=== PATIENT | female | born 1955 | race Caucasian/White ===

== ENCOUNTER 2017-01-18 06:14 | Inpatient (IN) | payer BC ==
--- NOTE | 2017-01-10 13:00 | HP ---
MEDICATION ADDENDUM NOW INCLUDED ON THIS REPORT HISTORY AND PHYSICAL: DATE OF ADMISSION: 01/18/17 She is coming into [facility] on 01/18/17 for a right total knee replacement. CHIEF COMPLAINT: Right knee pain and deformity. HISTORY OF PRESENT ILLNESS: She has had several years of right knee pain and problems. She had a left total knee replacement last year. The right knee bothers her pain and stiffness. Her walking distance is limited to 1 to 2 blocks. She does stairs using a banister and up is easy for her and down is more painful. She is okay sitting and sleeping. The plan is for a right total knee replacement because the nonoperative care has been no longer responsive for her pain, problems, and disability. PAST MEDICAL HISTORY: No heart attack. No chest pain. No bleeding disorders. PAST SURGICAL HISTORY: She has had a tubal ligation, a D and C x2, a left total knee replacement. No marked surgical or anesthetic complications. No cancers. She has a medical clearance from Dr. Fisher. ALLERGIES: She is allergic to LISINOPRIL, BIAXIN, and AUGMENTIN. SOCIAL HISTORY: No smoking. No drinking. REVIEW OF SYMPTOMS: No stomach problems. No hepatitis. No kidney problems. No bladder problems. PHYSICAL EXAMINATION GENERAL: She is well nourished, well developed, and overweight, not acutely distressed. Some limp on the right. The left knee has a well-healed surgical scar and the right knee has varus in the lateral thrust with ambulation. VITAL SIGNS: Temperature 96.6, blood pressure 136/89, and pulse is 70. Height 5 feet 6 inches and weight 237. HEENT: The head is NC/AT. LUNGS: Clear bilaterally. HEART: Regular S1, S2 normal. No murmurs or gallops. ABDOMEN: Round, soft, and nontender. There is no organomegaly. EXTREMITIES: The foot pulses intact on the left and left knee ligaments are stable and the walking limp. NEUROLOGIC: The cranial nerves are grossly intact. DIAGNOSTIC STUDIES/LAB DATA: X-rays: Severe arthritis of the right knee, bone -on- bone sclerosis and varus malalignment. IMPRESSION: Severe arthritis of the right knee. PLAN: Right total knee replacement. Goals, risks, and complications are reviewed with the patient in my office and acknowledgement of complications of knee replacements were also reviewed. ADDENDUM: Please include in her past medical history, her daily medications: 1. Avapro 75 mg each day. 2. Tolterodine tartrate 2 mg 1 tablet by mouth each day. 3. Hydrochlorothiazide 12.5 mg 1 each day. 4. Plummer-3 1000 mg 3 times a day. 5. Osteo Bi-Flex. 6. Multivitamins. This patient is cared for by Dr. Shilpa Fisher. [id number]/[facility] #: [id number]/[facility] #: [id number] [facility]ASS[facility] HOSPITALKarla
--- NOTE | 2017-01-10 13:25 | HP ---
ADDENDUM: Please include in her past medical history, her daily medications: 1. Avapro 75 mg each day. 2. Tolterodine tartrate 2 mg 1 tablet by mouth each day. 3. Hydrochlorothiazide 12.5 mg 1 each day. 4. Corinne-3 1000 mg 3 times a day. 5. Osteo Bi-Flex. 6. Multivitamins. This patient is cared for by Dr. Shilpa Fisher. [id number]/[facility] #: [id number] LEE
[~2017-01-18 06:14] MED LIST: Buffered Lidocaine 1% SYRIN* 5 ML/SYR SYRINGE ONE; Clindamycin 900 MG IVPREMIX(* 900 MG/50 ML SDV IV ONE; Dexamethasone IV* 4 MG/ML 1 ML (4 MG) IV SLOW PU ONE; Dexamethasone IV* 4 MG/ML 1 ML (4 MG) ONE; Famotidine IV* 10 MG/ML 2 ML (20 mg) IV ONE; Famotidine IV* 10 MG/ML 2 ML (20 mg) ONE
[2017-01-18] MEDS ORDERED: Bupivacaine 0.5% W/EPI SDV* 30 ML VIAL ONE (07:07)
[2017-01-18] MEDS ORDERED: Morphine PF AMP (0.5MG/ML)* 5 MG/10 ML AMP ONE (07:13)
[2017-01-18] MEDS ORDERED: Midazolam* 1 MG/ML 5 ML VIAL (5 MG) ONE (07:13)
[2017-01-18] MEDS ORDERED: Propofol* 10 MG/ML 20 ML BTL IV PUSH ONE (07:13)
[2017-01-18] MEDS ORDERED: KETAMINE HCL* 50 MG/ML 10 ML VIAL ONE (07:13)
[2017-01-18] MEDS ORDERED: Ondansetron INJ* 2 MG/ML VIAL ONE (07:13)
[2017-01-18] MEDS ORDERED: ceFAZolin 2 GM PREMIX(*) 2 GM/50 ML BAG IVPB ONE (07:29)
[2017-01-18] MEDS ORDERED: Bupivacaine 0.5% SDV PF* 30 ML VIAL ONE (08:19)
[2017-01-18] MEDS ORDERED: Midazolam* 1 MG/ML 2 ML VIAL (2 MG) ONE (08:54)
[2017-01-18] MEDS ORDERED: DiMENhydriNATE IV* 50 MG/ML VIAL IV PUSH PRN (09:22)
[2017-01-18] MEDS ORDERED: Nalbuphine* 20 MG/ML 1 ML VIAL IV PRN ×4 (09:22)
[2017-01-18] MEDS ORDERED: oxyCODONE/Acetamin 5/325 MG* TAB PO PRN ×2 (09:22)
[2017-01-18] MEDS ORDERED: Ondansetron INJ* 2 MG/ML VIAL IV PRN (09:22)
[2017-01-18] MEDS ORDERED: Naloxone* 0.4 MG/ML 1 ML VIAL IV PRN (09:22)
[2017-01-18] MEDS ORDERED: Scopolamine 1.5 mg* PATCH TRANSDERM SCH (10:00)
[2017-01-18] MEDS ORDERED: Nalbuphine* 20 MG/ML 1 ML VIAL ONE (10:49)
[2017-01-18] MEDS ORDERED: diPHENhydraMINE IV* 50 MG/ML 1 ml VIAL (BENADRYL) IV PRN (10:54)
[2017-01-18] MEDS ORDERED: Morphine INJ* 2 MG/ML 1 ML SYRINGE IV PRN (10:54)
[2017-01-18] MEDS ORDERED: Acetaminophen TAB* 325 MG PO PRN (10:54)
[2017-01-18] MEDS ORDERED: oxyCODONE TAB* 5 MG TAB PO PRN (10:54)
[2017-01-18] MEDS: Ropivacaine* 300 MG in NS 0.9% 250 ML* 240 ML EPIDURAL SCH (11:29)
--- NOTE | 2017-01-18 12:10 | RAD ---
INDICATION: Right knee arthroplasty COMPARISON: January 09, 2017 TECHNIQUE: A portable 2 view examination was performed. FINDINGS: There is right knee arthroplasty. Both femoral and tibial components appear well seated. There is a cooling jacket in place. There are anterior skin hugh. IMPRESSION: POSTOPERATIVE RIGHT TOTAL KNEE
[2017-01-18] MEDS ORDERED: Scopolamine 1.5 mg* PATCH ONE (13:48)
[2017-01-18] MEDS: ceFAZolin VIAL(*) 1 GM in NS 0.9% 50 ML* 50 ML IVPB SCH ×2 (16:06→21:29)
[2017-01-18] MEDS: Docusate CAP* 100 MG PO SCH (21:13)
[2017-01-19] MEDS ORDERED: oxyCODONE/Acetamin 5/325 MG* TAB PO PRN (00:01)
[2017-01-19] MEDS ORDERED: Ondansetron INJ* 2 MG/ML VIAL IV PRN (00:01)
--- NOTE | 2017-01-19 01:25 | OP ---
OPERATIVE REPORT: DATE OF OPERATION: 01/18/17 DATE OF : 59 SURGICAL CARE: Right knee. SURGEON: Tamir Arreguin MD. ASSISTANTS: Kellen Caicedo, medical or surgical instrument maker and MAHENDRA Rajan, was the support assistant. ANESTHESIOLOGIST: Dr. Cornell Villalobos. ANESTHESIA: Spinal with Duramorph and epidural IV sedation. PRE-OPERATIVE DIAGNOSIS: Severe arthritis of the right knee with varus deformity. POST- OPERATIVE DIAGNOSIS: Severe arthritis of the right knee with varus deformity. OPERATIVE PROCEDURE: Right total knee replacement. COMPLICATIONS: There were no complications. DRAINS: There were 2 blood collection drains, right knee, at the end of the case. ESTIMATED BLOOD LOSS: 250 mL. REPLACEMENT: Crystalloid fluids. OPERATIVE INDICATION: Severe arthritis of the right knee with varus malalignment. The Talib Person a Knee was utilized, the size 6 femur, a 32 patella, an E-tibia and a 10 articular surface. DESCRIPTION OF PROCEDURE: The patient was brought to the operating room and placed on the operating table in a supine position, then into a seated position for administration of spinal Duramorph and the epidural. She returned to the supine position. The Gastelum catheter was inserted. The right pro ximal thigh was wrapped with the tourniquet. The right knee was noted to have some flexion contract ure and the right dorsalis pedis pulse was 2+. The right leg was given a preliminary chlorhexidine prep in the region of the right knee and then a formal ChloraPrep from the tourniquet to the tips of the toes. After prepping, draping, and sealing off, we did our universal protocol time-out confirm cuco Brown and a plan for right total knee replacement. We all agreed and we proceeded. The ski n incision went from 2 fingerbreadths proximal to the superior pole of the patella to the medial asp ect of the tibial tubercle. The knee was entered medial parapatellar. There was a large amount of c lear straw-colored synovial fluid that was suctioned out. Careful hemostasis checked and achieved t hroughout the case utilizing electrocautery. On the tibia, we went down to the bone just medial to the tibial tubercle up to the joint line, then medial parapatellar and then divided the quad tendon at the junction of the rectus femoris and the vastus medialis, staying as close to vastus medialis a s possible, going 4 cm proximal to the superior pole of the patella. The patella was made so that i t could be everted. On the tibia, the anterior medial soft tissues were elevated subperiosteally go ing around to the deep MCL and then to the posteromedial corner of the knee. There was complete eburnation of bone on the medial femoral condyle, medial tibial plateau, some sco oping out of the medial tibial plateau and centimeter osteophytes on the medial tibial plateau, oste ophytes on patellofemoral joint, osteophyte intercondylar and small osteophytes laterally. The francisca tyler of the anterior horn of medial meniscus were carefully excised. The synovectomy was completed around the patella removing the infrapatellar fat pad and lateral meniscus was carefully excised. Careful hemostasis checked and achieved in the lateral joint line and the regional lateral geniculat e. The tibia was made so that it could be subluxated far from under the femur and the ACL and PCL w ere uplifted from their femoral origins. The PCL was carefully excised and great care was taken whil e working posteriorly with careful hemostasis. The distal anterior femur was exposed subperiosteall y for referencing and measuring. The proximal tibial cut was made first. Our goal here was to have a tibial surface that would be perpendicular along the axis of the tibia and have a slight posterio r slope, removing a centimeter to 12 mm laterally and a couple of millimeters medially. The femoral intramedullary drill was then utilized and the femoral canal was entered and suctioned to discourag e embolization. The distal femoral cutting guide was applied on 2 with 6 degrees of valgus for the right. This cut was completed and the extension gap was nice at a centimeter. The femur was measur ed for a size 6. The anterior, posterior and chamfering cuts were completed. We then finished katie maegan of the PCL, posterior horn lateral meniscus, osteophyte on the posterior medial femoral condyle and carefully removed the remains of the medial meniscus, carefully preserving the MCL. At this stag e, we had nice ligamentous balance and 90 degrees of flexion with a 10 and an extension with a 10. The femur was completed with the intercondylar cut out. The tibia was completed for a size E. The knee was reticulated and extended after cleaning the femoral canal x6 with saline suctioning and emp tying and inserting a bone plug. The knee was then assembled with the E tibia, 10 articular surface , 6 femur with full knee extension, nice alignment in extension, stable ligaments in extension and s table ligaments in 90 degrees of flexion. The patella was cut flat, a 32 was chosen, 3 drill holes were made and these were undercut for optimal cement interdigitation. The leg was exsanguinated. T he tourniquet elevated to 300. The knee was cleaned in extension with 2.5 L of pulsed saline irriga tion. Careful hemostasis again on the lateral geniculate. The knee was flexed and the retractors p ut into position. All surfaces were cleaned with pulsed saline and flexion and then dried with lap sponges. The cement was mixed. The components were cemented into position, patella followed by tib ia followed by femur, each was impacted. Excess cement was removed, and the knee was articulated an d extended during the final hardening. The tourniquet was then deflated. Hemostasis was checked and achieved throughout utilizing electroc autery. We infiltrated the posterior medial pericapsular tissues with Marcaine 0.5% with epinephrin e 15 mL and another 5 mL medially and in the skin and subcu. During closure, we irrigated a couple of times with saline and the knee was flexed and extended completely during closure, flexing to abou t 120 and extending fully. Quad mechanism closed with interrupted #1 Polysorb in figure-of- eight f ashion. Distally we used 0 Polysorb, then in the deep fascia, deep bursa 0 Polysorb and then 3-0 Po lysorb on the superficial subcu and then hugh on the skin. Two drains were brought out the super olateral and suprapatellar pouch. At the end of the case, the dorsalis pedis pulse was 2+. The kne e was washed and dried and then dressed with Betadine soaked release and gauze. This was on the alma gical hugh and on the drain sites and then sterile Webril, cryotherapy cuff, ABD pads, and a 6-i nch Angelo bandage was loosely applied. The patient was returned to the recovery room in stable and sa tisfactory condition having tolerated the procedure very well. [id number]/[facility] #: [id number]
[2017-01-19] MEDS: ceFAZolin VIAL(*) 1 GM in NS 0.9% 50 ML* 50 ML IVPB SCH (04:19)
[2017-01-19] MEDS: oxyCODONE/Acetamin 5/325 MG* TAB PO PRN ×4 (05:46→19:23)
[2017-01-19 06:05] LABS: Hemoglobin 9.7 g/dl (12.0-16.0)
[2017-01-19 06:07] LABS: Hematocrit 30 % (35-47)
[2017-01-19 06:24] LABS: BUN/Creatinine Ratio 20.3 (8-20); Calcium 8.3 mg/dL (8.6-10.3); EGFR African American 111.6 (>60); EGFR Non-African American 86.8 (>60); Potassium 3.8 mmol/L (3.5-5.0)
[2017-01-19] MEDS: Ropivacaine* 300 MG in NS 0.9% 250 ML* 240 ML EPIDURAL SCH (08:06)
[2017-01-19] MEDS: Hydrochlorothiazide TAB* 25 MG PO SCH (08:09)
[2017-01-19] MEDS: Losartan TAB* 25 MG PO SCH (08:09)
[2017-01-19] MEDS: Aspirin TAB* 325 MG PO SCH (09:11)
[2017-01-19] MEDS: Magnesium Hydroxide LIQ* 30 ML UDC PO PRN (09:11)
[2017-01-19] MEDS: Docusate CAP* 100 MG PO SCH ×2 (09:11→19:23)
[2017-01-19] MEDS: Vitamin THERAPEUTIC TAB PO SCH (09:11)
[2017-01-19] MEDS: Oxybutynin TAB* 5 MG PO SCH (09:11)
[2017-01-20] MEDS: oxyCODONE/Acetamin 5/325 MG* TAB PO PRN ×3 (01:04→11:57)
[2017-01-20] MEDS: Magnesium Hydroxide LIQ* 30 ML UDC PO PRN (01:07)
[2017-01-20 07:11] LABS: Hematocrit 29 % (35-47); Hemoglobin 9.6 g/dl (12.0-16.0)
[2017-01-20] MEDS: Vitamin THERAPEUTIC TAB PO SCH (08:14)
[2017-01-20] MEDS: Docusate CAP* 100 MG PO SCH (08:14)
[2017-01-20] MEDS: Losartan TAB* 25 MG PO SCH (08:14)
[2017-01-20] MEDS: Hydrochlorothiazide TAB* 25 MG PO SCH (08:14)
[2017-01-20] MEDS: Oxybutynin TAB* 5 MG PO SCH (08:14)
[2017-01-20] MEDS: Aspirin TAB* 325 MG PO SCH (08:14)
[2017-01-20 12:35] VITALS: BP 140/77
--- NOTE | 2017-01-20 13:06 | PN ---
Progress Note - Progress Note SOAP: Subjective: []Patient seen OOB in chair. Has been ambulating independently around the unit. Ready to go home today. Objective: [] Vital Signs Temp 98.2 F 01/20/17 11:17 Pulse 79 01/20/17 11:17 Resp 18 01/20/17 11:57 BP 140/77 01/20/17 11:17 Pulse Ox 97 01/20/17 11:17 Intake & Output 01/19/17 01/20/17 01/20/17 18:59 06:59 18:59 Intake Total 846 1820 320 Output Total 2650 1550 600 Balance -1804 270 -280 Intake: IV Fluids 546 LR 546 IVPB 60 ABX - CEFAZOLIN 60 Oral 240 1820 320 Output: Urine 1400 1550 600 Gastelum 1250 Laboratory Results - last 24 hr 01/19/17 01/20/17 05:46 06:20 Hgb 9.6 L Hct 29 L Sodium 137 Potassium 3.8 Chloride 99 L Carbon Dioxide 27 Anion Gap 11 BUN 14 Creatinine 0.69 Est GFR ( Amer) 111.6 Est GFR (Non-Af Amer) 86.8 BUN/Creatinine Ratio 20.3 H Glucose 136 H Calcium 8.3 L Right knee dressing changed by Dr. Arreguin, wound benign neuro intact calf non tender Assessment: []s/p Right total knee arthroplasty POD #2 Plan: []Discharge home on ASA 325 mg daily Follow up in 2-3 weeks in office
--- NOTE | 2017-01-21 00:48 | DS ---
DISCHARGE SUMMARY: DATE OF ADMISSION: 01/18/17 DATE OF DISCHARGE: 01/20/17 ADMISSION DIAGNOSIS: Advanced osteoarthritis of the right knee with varus deformity. DISCHARGE DIAGNOSIS: Advanced osteoarthritis of the right knee with varus deformity. SURGERY PERFORMED: Right total knee arthroplasty. HOSPITAL COURSE: The patient is a 62-year-old female, who underwent left total knee arthroplasty roughly 1 year ago and did very well. She continued to have pain and limitations in her activities of daily living due to advanced osteoarthritis of the right knee. She failed conservative measures including cortisone injections, physical therapy, and assistive device. She elected to proceed with right total knee arthroplasty and was taken to the operating room under the care of Dr. Tamir Arreguin, on the date of 01/18/17. She tolerated the procedure well and left the operating room in stable condition. Postoperatively , she progressed very well with physical therapy and occupational therapy goals. She was ambulating independently with a walker postoperative day 1 with her pain under excellent control. She had no other postoperative complications. Her hematocrit and hemoglobin remained stable throughout her hospital stay. It was felt that she was orthopedically and medically stable for discharge home on the date of 01/20/17. CONDITION ON DISCHARGE: The patient is afebrile. Her vital signs are stable. Her incision is healing uneventfully without evidence of infection. Her dressings were changed today by Dr. Arreguin himself. Her calf is soft and nontender. Her neurovascular status is intact with active dorsiflexion and plantar flexion of the right ankle. PLAN: Discharged to home, 01/20/17. She will continue on aspirin 325 mg p.o. daily. Prescription of oxycodone/acetaminophen 5/325 mg was called into her pharmacy, #90 with 0 refills. She will also take Colace 100 mg p.o. b.i.d. to help prevent constipation while on the narcotics. She will follow up in the office with Dr. Arreguin in roughly 2 to 3 weeks. Visiting home nurse will be present to remove hugh at roughly 2-week postoperative time adama. She has increased knee pain, swelling, noticeable incisional redness, drainage, calf pain, shortness of breath, chest pain. The office will be contacted. Otherwise , she will follow up with Dr. Arreguin as above. MAHENDRA RYAN [id number]/[facility] #: [id number] [facility]ENT[facility]arla
[2017-01-21] MEDS ORDERED: Scopolomine PATCH Remove* 1 NOTE MISC PATCH OFF ONE (09:26)
== END 2017-01-20 13:35 | disposition home health service (06) | DRG 302 ==
LOC: AA 06:14 → SSU 10:48
PROVIDERS: ADMIT Orthopaedic Surgery; ATTEND Orthopaedic Surgery
PROC: 0SRC0J9 Replacement of Right Knee Joint with Synthetic Substitute, Cemented, Open Approach (ICD-10-PCS; principal; 2017-01-18 07:30)
DX: M17.11 Unilateral primary osteoarthritis, right knee (principal); D62 Acute posthemorrhagic anemia; M21.061 Valgus deformity, not elsewhere classified, right knee; Z96.652 Presence of left artificial knee joint; E66.9 Obesity, unspecified; H40.9 Unspecified glaucoma; M25.761 Osteophyte, right knee; Z68.39 Body mass index [BMI] 39.0-39.9, adult; Z88.1 Allergy status to other antibiotic agents; Z88.8 Allergy status to other drugs, medicaments and biological substances; Z98.51 Tubal ligation status
CPT/HCPCS: 36415; 62323; 80048; 85014; 85018; 94760; A9270-GY; C1776; J0690; J1100; J1240; J2250; J2300; J2405; J2704; J2795

== ENCOUNTER 2019-07-11 08:18 | Emergency (ER) | payer BC ==
--- OUTSIDE RECORDS SUMMARY | 2019-07-11 08:38 | XMS REPORT | Continuity of Care Document ---
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 Onset: 02/11/2014 Conjunctival hemorrhage Arsen Miller M.D. Onset: 10/04/2016 Social History Type Date Description Comments Sex Unknown ETOH Use Denies alcohol use Tobacco Use Start: Unknown Patient has never smoked Smoking Status Reviewed: 06/18/19 Patient has never smoked Allergies, Adverse Reactions, Alerts Active Allergies Reaction Severity Comments Date Lisinopril 02/11/2014 Inactive Allergies NKDA 02/07/2014 Medications Active Medications SIG Qnty Indications Ordering Date Provider Latanoprost 1 drops both 7.5ml Zeke Soliman, 12/11/2018 0.005% Solution eyes every OD night Dorzolamide HCL/Timolol instill 1 drop 10units Zeke Soliman, 12/11/2018 Maleate Qam OU OD 22.3-6.8mg/ml Solution Irbesartan Unknown 75mg Tablets Hydrochlorothiazide Unknown 12.5mg Capsules Tolterodine Tartrate Unknown 2mg Tablets Osteo Bi-Flex Advanced Unknown Triple Strength Tablets Fish Oil Unknown 1200mg Capsules DR One Daily Womens 50+ Unknown 50+ Tablets Coconut Oil Unknown 1000mg Capsules Metronidazole Unknown 0.75% Cream Immunizations Description No Information Available Vital Signs Date Vital Result Comment 03/19/2019 8:42am Intraocular Pressure Right Eye 14 mmHg Intraocular Pressure Left Eye 16 mmHg 12/11/2018 10:22am Intraocular Pressure Right Eye 18 mmHg Intraocular Pressure Left Eye 16 mmHg Results Description No Information Available Procedures Date Code Description Status 03/19/2019 63554 Oct, Optic Nerve Completed 03/19/2019 05928 Eye Exam Est Intermediate Completed Medical Devices Description No Information Available Encounters Description No Information Available Assessments Date Code Description Provider 06/19/2019 H40.1131 Primary open-angle glaucoma, bilateral, mild Zeke Soliman, OD stage 06/19/2019 H25.13 Age-related nuclear cataract, bilateral Zeke Soliman, OD 06/19/2019 H52.4 Presbyopia Zeke Soliman, OD 03/19/2019 H40.1131 Primary open-angle glaucoma, bilateral, mild Zeke Soliman, OD stage 03/19/2019 H25.13 Age-related nuclear cataract, bilateral Zeke Soliman, OD Plan of Treatment 06/19/2019 - Zekedank Soliman, ODH40.1131 Primary open-angle glaucoma, bilateral, mild [id number] Age-related nuclear cataract, [id number] PresbyopiaFollow up:3 mos VF, sooner PRN Functional Status Description No Information Available Mental Status Description No Information Available Referrals Description No Information Available
--- OUTSIDE RECORDS SUMMARY | 2019-07-11 08:38 | XMS REPORT | Continuity of Care Document ---
:1955 External Reference #:[id number] Author Name Zeke Soliman, OD Address [address] [place] [address] Care Team Providers Name Role Phone Shilpa Lu MD Care Team Information Gis Consultant [phone] Problems Active Problems Provider Date Ocular hypertension [...] Latanoprost 1 drops both 7.5ml Zeke Soliman, 06/19/2019 0.005% Solution eyes every OD night Dorzolamide HCL/Timolol instill 1 drop 10units Zeke Soliman, 06/19/2019 Maleate twice a day OD 22.3-6.8mg/ml Solution both eyes Irbesartan Unknown 75mg Tablets Hydrochlorothiazide Unknown 12.5mg Capsules Tolterodine Tartrate Unknown 2mg Tablets Osteo Bi-Flex Advanced Unknown Triple Strength Tablets Fish Oil Unknown 1200mg Capsules DR One Daily Womens 50+ Unknown 50+ Tablets Coconut Oil Unknown 1000mg Capsules Metronidazole Unknown 0.75% Cream History Medications Dorzolamide HCL/Timolol instill 1 drop 10units Zeke Soliman, 06/19/2019 - Maleate Qam OU OD 06/19/2019 22.3-6.8mg/ml Solution Immunizations Description No Information Available Vital Signs Date Vital Result Comment 06/19/2019 9:43am Intraocular Pressure Right Eye 16 mmHg Intraocular Pressure Left Eye 17 mmHg 03/19/2019 8:42am Intraocular Pressure Right Eye 14 mmHg Intraocular Pressure Left Eye 16 mmHg Results Description No Information Available Procedures Date Code Description Status 03/19/2019 72312 Oct, Optic Nerve Completed 03/19/2019 06414 Eye Exam Est Intermediate Completed Medical Devices [...] bilateral Zeke Soliman, OD Plan of Treatment Future Appointment(s):09/24/2019 10:45 am - Zeke Soliman, OD at [id number] - Zeke Soliman, ODH40.1131 Primary open-angle glaucoma, bilateral, mild [id number] Age-related nuclear cataract, [id number] PresbyopiaFollow up:3 mos VF, sooner PRN Functional Status Description No Information Available Mental Status Description No Information Available Referrals Description No Information Available
--- NOTE | 2019-07-11 09:44 | ED ---
Back Pain - HPI Summary HPI Summary: Pt is a 64 y/o F presenting to the ED with a chief complaint of back pain initially onset about 6 weeks ago when she picked up her [place], 60 pounds. The pain is across her lower back. She went to where they told her it was probably strained and prescribed her muscle relaxers, which she took and stayed off of work for about four days. Pt states the pain improved. Over the last 3 days, the pain has returned and she feels it radiating through her hips and into her L buttock/leg. Pt states discomfort is better with moving and worse at the end of the day. Pt states last night pain was increased so she took Motrin and APAP - both of which helped and she was able to sleep. Pt denies direct trauma. She denies incontinence, weakness, or hematuria. No leg weakness. Pt states has been walking gingerly related to back pain and slippery conditions. Pt has an appt with PCP on Tuesday but came here in case she needed any imaging. No [facility]. Pt states this morning the pain is "not too bad" Pt does have a history or osteoarthritis - she has had bilateral knee replacements. Patients medications reviewed this visit. - History of Current Complaint Chief Complaint: EDBackInjuryPain Stated Complaint: LOW BACK/HIP PAIN PER PT Time Seen by Provider: 07/11/19 08:43 Hx Obtained From: Patient Onset/Duration: Gradual Onset, Lasting Weeks, Still Present Onset/Duration: Started Weeks Ago, Still Present Timing: Constant, Lasting Weeks Back Pain Location: Is Diffuse - lower back Severity Initially: Mild Severity Currently: Moderate Pain Intensity: 6 Pain Scale Used: 0-10 Numeric Aggravating Symptom(s): Nothing Alleviating Symptom(s): Other - movement Associated Signs And Symptoms: Negative: Weakness, Bladder Incontinence - Allergies/Home Medications Allergies/Adverse Reactions: Allergies Allergy/AdvReac Type Severity Reaction Status Date / Time amoxicillin Allergy Hives Verified 07/11/19 08:31 ampicillin Allergy Hives Verified 07/11/19 08:31 clarithromycin [From Biaxin] Allergy Rash Verified 07/11/19 08:31 clavulanic acid Allergy Rash Verified 07/11/19 08:31 [From Augmentin] lisinopril Allergy Coughing Verified 07/11/19 08:31 Home Medications: Home Medications Glucosamine/D3/Boswellia Kandace [Osteo Bi-Flex Caplet] 2 each PO DAILY 07/11/19 [ History Confirmed 07/11/19] Hydrochlorothiazide TAB* [Hydrodiuril TAB*] 12.5 mg PO DAILY 07/11/19 [History Confirmed 07/11/19] Multivitamins/Minerals TAB* [Theragran/minerals TAB*] 1 tab PO DAILY 07/11/19 [ History Confirmed 07/11/19] Timolol 0.25% OPHTH.SOLN* [Timoptic Ophth.soln 0.25%] 1 drop BOTH EYES BID 07/11 [History Confirmed 07/11/19] Tolterodine Tartrate 2 mg PO DAILY 07/11/19 [History Confirmed 07/11/19] diphenhydrAMINE HCl [Allergy Medication] 25 mg PO DAILY PRN 07/11/19 [History Confirmed 07/11/19] PMH/Surg Hx/FS Hx/Imm Hx Previously Healthy: Yes Cardiovascular History: Reports: Hx Hypertension - CONTROL WITH MEDS History: Reports: Other Problems/Disorders - STRESS INCONTINENCE Musculoskeletal History: Reports: Hx Arthritis - right KNEES Sensory History: Denies: Hx Contacts or Glasses, Hx Hearing Aid Comment Only: Hx Glaucoma - bilateral eye drops Opthamlomology History: Denies: Hx Contacts or Glasses Comment Only: Hx Glaucoma - bilateral eye drops - Cancer History Hx Chemotherapy: No Hx Radiation Therapy: No - Surgical History Surgery Procedure, Year, and Place: 1976 & 1977 DILATION AND CURETTAGE, [facility]. 1992 BILATERAL TUBAL LIGATION, [facility] [place]. 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 Lives: With Family Alcohol Use: None Hx Substance Use: No Substance Use Type: Reports: None Hx Tobacco Use: No Smoking Status (MU): Never Smoked Tobacco Review of Systems Constitutional: Negative Eyes: Negative ENT: Negative Negative: hematuria, incontinence Positive: Myalgia - back pain Negative: Weakness All Other Systems Reviewed And Are Negative: Yes Physical Exam - Summary Physical Exam Summary: Vital Signs Reviewed: Yes A+Ox3, no distress Eyes: Conjunctiva Clear, ENT: Hearing grossly normal , mmmoist Neck: Positive: Supple Respiratory: Positive: No respiratory distress, No accessory muscle use + CTA throughout no w/r Cardiovascular: RRR nl s1, s2 no m/r CBT <2 sec abd soft + BS nt/nd no guarding, no distension Musculoskeletal Exam: no spinous process pain c/t/l/s + mild TTP left SI joint , + SLE b/l + external rotation bilateral with mild discomfort left SI joint + flex/ext knee, ankle Neurological: Positive: Alert, + sensation throughout - reports slight decreased LLE 2+ patellar b/l no clonus Psychological: Positive: Normal Response To examiner Skin: Positive: no rash, no ecchymosis Triage Information Reviewed: Yes Vital Signs On Initial Exam: Initial Vitals Temp Pulse Resp BP Pulse Ox 98.2 F 84 16 146/90 93 07/11/19 08:27 07/11/19 08:27 07/11/19 08:27 07/11/19 08:27 07/11/19 08:27 Vital Signs Reviewed: Yes Procedures - Sedation Patient Received Moderate/Deep Sedation with Procedure: No Diagnostics - Vital Signs Vital Signs Temp Pulse Resp BP Pulse Ox 07/11/19 08:27 98.2 F 84 16 146/90 93 - Laboratory Lab Statement: Any lab studies that have been ordered have been reviewed, and results considered in the medical decision making process. - Radiology Hip XR Radiology Interpretation Completed By: Radiologist Summary of Radiographic Findings: BILATERAL OSTEOARTHRITIS. NO ACUTE OSSEOUS INJURY. IF SYMPTOMS PERSIST, RECOMMEND REPEAT IMAGING. ED physician has reviewed this report. L-spine XR Radiology Interpretation Completed By: Radiologist Summary of Radiographic Findings: 1. Multilevel advanced degenerative spondylosis and facet joint osteoarthritis. 2. RIGHT upper quadrant 2.4 cm diameter calcified structure most likely representing a gallstone or porcelain gallbladder. Consider RIGHT upper quadrant ultrasound for further assessment. ED physician has reviewed this report. Re-Evaluation - Re-Evaluation First Eval Comment: Reviewed imaging studies as well as her with patient. We'll start patient on a short course of prednisone for inflammation. Patient to work. Encouraged heat and stretching. Motrin and Tylenol. Take with food. Patient comfortable and agreeable with plan. Declined any additional analgesia. We'll see PCP on Tuesday. work note given. Return precautions discussed. Back Pain Course/Dx - Course Course Of Treatment: Patient presents to urgent care for evaluation of her low back and lower extremities that have been progressively sore last 3 days. Patient states 6 weeks ago injured her back lifting her dog. Patient states she took also relaxers and abdominal pain improved. Patient states she was relatively days ago when things became sore again. Patient states last night she had increased pain in her left hip waiting on left buttock. No leg weakness. No bowel palate changes. Patient took Motrin Tylenol with improvement. Patient with a PCP on Tuesday but wanted her checked in case she needed images. On exam vital signs are stable. Patient does have focal pain in the left SI area. Patient also. This will range of motion with mild discomfort in the left SI. Low suspicion for fracture. Ex pectus may be related to arthritis. We'll do some imaging. Patient declined analgesia here. We'll reassess after. Patient comfortable also check her urine. - Diagnoses Provider Diagnoses: Osteoarthritis, Muscle strain Discharge ED - Sign-Out/Discharge Documenting (check all that apply): Patient Departure - Discharge Plan Condition: Stable Disposition: HOME Prescriptions: methylPREDNISolone [Medrol Dosepak 4 MG*] 1 mg PO .SEE HUNTER INSTRUCTION #1 tab Patient Education Materials: Muscle Strain (ED), Osteoarthritis (ED) Forms: *Work Release Referrals: Shilpa Fisher MD [Primary Care Provider] - Additional Instructions: -Okay to alternate ibuprofen (Advil, Motrin) and Tylenol (acetaminophen) every 3 hours for pain or fever. Take with food. Do NOT take for more than 4-5 days. - slow, gentle stretching exercises are okay - several times a day - when sleeping - if you are on your back place a pillow under your knees. if you are on your side, place a pillow between your knees Take prednisone as prescribed until gone - keep your appointment with your primary doctor as scheduled on Tuesday. - Billing Disposition and Condition Condition: STABLE Disposition: Home - Attestation Statements Document Initiated by Scribe: Yes Documenting Scribe: Inés Arita Provider For Whom Ami is Documenting (Include Credential): Shivani Plaza MD. Scribe Attestation: Inés Asher, scribed for Shivani Plaza MD. on 07/11/19 at 1133. Scribe Documentation Reviewed: Yes Provider Attestation: The documentation as recorded by the scribe, Inés Arita accurately reflects the service I personally performed and the decisions made by me, Shivani Plaza MD. Status of Scribe Document: Viewed
[2019-07-11 10:02] LABS: Urine Appearance Clear; Urine Bacteria Absent (Absent); Urine Bilirubin Negative (Negative); Urine Blood 1+ (Negative); Urine Color Straw; Urine Glucose Negative (Negative); Urine Ketones Negative (Negative); Urine Nitrite Negative (Negative); Urine Protein Negative (Negative); Urine Red Blood Cell Trace(0-2/hpf) (Absent); Urine Specific Gravity 1.008 (1.010-1.030); Urine Squamous Epithelial Cell Present (Absent); Urine Urobilinogen Negative (Negative); Urine White Blood Cell Absent (Absent)
[2019-07-11 11:41] VITALS: BP 147/93
== END 2019-07-11 11:17 | disposition home or self-care (01) ==
LOC: ED 08:18
DX: S39.012A Strain of muscle, fascia and tendon of lower back, initial encounter (principal); X50.0XXA Overexertion from strenuous movement or load, initial encounter; Y92.9 Unspecified place or not applicable; M47.817 Spondylosis without myelopathy or radiculopathy, lumbosacral region; M16.0 Bilateral primary osteoarthritis of hip; I10 Essential (primary) hypertension; Z96.652 Presence of left artificial knee joint; Z88.1 Allergy status to other antibiotic agents; Z88.0 Allergy status to penicillin; Z88.8 Allergy status to other drugs, medicaments and biological substances
CPT/HCPCS: 72110; 73523; 81003; 81015; 99282